=== PATIENT | male | born 1965 | race Caucasian/White ===

== ENCOUNTER → 2016-10-02 | Outpatient (CLI) | payer OTHER ==
[~2016-10-02] MED LIST: ALBUTEROL17 GM INH; AZELASTINE137 MCG/0.; CELEXA20 MG PO; CLEOCIN HCL300 M1 PO; COUMADIN5 MG; CRESTOR PO; DIOVAN80 M1 PO; FLONASE 0.05% N16 G1; HYDROCODON-ACE1 EAC5 PO; HYDROCODONE PO; HYDROXYZINE HCL10 MG PO; LOVENOX120 MG/0.8 INJ; METFORMIN PO; MONTELUKAST SOD10 MG PO; NEURONTIN600 MG PO; PERCOCET 10/3251 TAB PO; PERCOCET5/325; PREDNISONE PO; STIOLTO RESPIMAT4 GM INH; VICTOZA0.6 MG/0.1 SQ; VISTARIL PO
--- NOTE | ~2016-10-02 | CT2 ---
[facility] A Service of [facility] & [facility] RADIOLOGY TEXT RESULTS PATIENT: JOSE GAYLE JR LOCATION: [facility] : 67 UNIT #: [id number] AGE: [address]: Cole Castelan MD SEX: M ORDER DR: [id number] [place] [id number] O MR#: [id number] Acc #: [id number] NAME: JOSE GAYLE : 1965 SEX: M STUDY DATE/TIME: 10/02/2016 8:30 UNIT: SCT ROOM: STUDY DESCRIPTION: CT Abd and Pelv W Cont Attending Physician: Cole Castelan M.D. Referring Physician: Cole Castelan M.D. Ordering Physician: Cole Castelan M.D. Primary Care Physician: Selena Curry A.P.R.N. MEDICAL IMAGING REPORT This report is preliminary unless electronic signature is present. EXAM CT of the abdomen and pelvis with contrast. INDICTION Left sided abdominal pain for 3 weeks. Patient has a history of androgen excess and testicular hypofunction secondary to polycythemia. TECHNIQUE Axial CT images were obtained from dome of the diaphragm through the symphysis pubis following the administration of oral and intravenous contrast material. The CT exam was performed with one or more of the following radiation dose reduction techniques: automatic exposure control, adjustment of mA and/or kV according to patient size, and iterative reconstruction. FINDINGS Images through the lung bases demonstrate some pleural-based scarring at the right lung base. Some additional scarring is also noted at the left lung base. No suspicious pulmonary nodules or masses are seen. Stomach and proximal small bowel are within normal limits. Adrenal glands are somewhat bulky in contour but unchanged when compared to the prior exam. Patient does have hepatosplenomegaly. The liver measures up to about 16.2 cm in craniocaudal dimensions while the spleen measures up to 14.5 cm in craniocaudal dimensions. Gallbladder is surgically absent. Pancreas is mildly atrophic. There is noted some mechanical bowel obstruction. Prostate gland is mildly enlarged and does contains some dystrophic calcifications. Urinary bladder appears normal. There is no evidence of mechanical bowel obstruction. No free fluid or adenopathy is seen within the abdomen or pelvis. On prior examination this patient had a thrombus within the SMV. I [facility] A Service of [facility] RADIOLOGY TEXT RESULTS PATIENT: JOSE GAYLE JR LOCATION: [facility] : 67 UNIT #: [id number] AGE: [address]: Cole Castelan MD SEX: M ORDER DR: suspect there is some persistent chronic thrombus within it although the previously noted abnormal bowel has resolved. Splenic vein and portal vein are both patent. IMPRESSION 1. Hepatosplenomegaly. 2. Previously identified SMV thrombus is no longer as evident. Some of this may be related to timing of the contrast bolus but certainly does not appear enlarged on today's examination, and no mesenteric edema or bowel abnormality is seen on today's study. I do suspect there is probably at least some chronic thrombus with SMV. 3. Please see the body of the report for any other additional incidental findings. Dictated by... Queta Adler M.D. THIS IS AN ELECTRONICALLY VERIFIED REPORT Queta Adler M.D. at 10/02/2016 3:54 PM ROGER/chyna TD: 10/02/2016 13:44 JOB #: [id number] MEDICAL IMAGING REPORT Page 1 of 1
[2016-10-02 07:45] LABS: POC - CREATININE 1.01 mg/dL (0.64-1.27); POC - GFR >60.0 mL/min (>60)
== END | disposition home or self-care (01) ==
LOC: SCT 07:20 → CCAT 07:40 → SCT 09:20 → CCAT 09:20
PROVIDERS: Internal Medicine Hematology & Oncology
DX: D75.1 Secondary polycythemia (principal); G47.33 Obstructive sleep apnea (adult) (pediatric); E29.1 Testicular hypofunction; E26.1 Secondary hyperaldosteronism; R16.2 Hepatomegaly with splenomegaly, not elsewhere classified
CPT/HCPCS: 74177; 82565; Q9967

== ENCOUNTER → 2016-11-23 | Outpatient (CLI) | payer OTHER ==
--- NOTE | ~2016-11-23 | EKG ---
PATIENT: JOSE GAYLE UNIT #: [id number] Ventricular Rate: 83 BPM Atrial Rate: 83 BPM P-R Interval: 152 ms QRS Duration: 72 ms Q-T Interval: 344 ms QTC Calculation(Bezet): 404 ms P [place]: 72 degrees Calculated R [place]: 59 degrees Calculated T [place]: 33 degrees Diagnosis Line: Normal sinus rhythm Diagnosis Line: Nonspecific T wave abnormality Diagnosis Line: Abnormal ECG Diagnosis Line: No previous ECGs available Diagnosis Line: Confirmed by FLORENTIN CARMONA MD ([id number]) on 11/23/2016 Diagnosis Line: 6:59:39 PM INTERPRETING MD: MATHEW CASTILLO
[2016-11-23 14:18] LABS: HEMATOCRIT 50.6 % (38.0-50.0); HEMOGLOBIN 17.5 gm/dL (13.0-16.0); MEAN CELL VOLUME 85.9 FL (83-96); MEAN CORPUSCULAR HEMOGLOBIN 29.7 PG (28-34); MEAN CORPUSCULAR HGB CONC 34.5 g/dL (30-36); MEAN PLATELET VOLUME 9.3 FL (6.5-11.5); RED BLOOD COUNT 5.89 X10e (3.90-5.60); RED CELL DISTRIBUTION WIDTH 17.3 % (11.0-15.5); WHITE BLOOD COUNT 7.9 X10e3 (4.0-10.5)
[2016-11-23 14:46] LABS: ALBUMIN SERUM 4.6 g/dL (3.5-5.0); BILIRUBIN,TOTAL 0.8 mg/dL (0.2-2.0); BUN/CREATININE RATIO 13.75; CALCIUM SERUM 9.6 mg/dL (8.4-10.2); CREATININE SERUM 0.8 mg/dL (0.6-1.4); GLOM FILT RATE Estimated 104.2 mL/min (>60); POTASSIUM 4.2 mmol/L (3.5-5.1); PROTEIN TOTAL SERUM 8.4 g/dL (6.0-8.3)
== END | disposition home or self-care (01) ==
LOC: CAMB 12:49
PROVIDERS: Surgery
DX: Z01.818 Encounter for other preprocedural examination (principal)
CPT/HCPCS: 36415; 80053; 80061; 85027; 85610; 93005

== ENCOUNTER → 2016-11-23 | Outpatient (CLI) | payer OTHER ==
[2016-11-23 14:34] LABS: INR 1.7
[2016-11-23 14:45] LABS: CHOLESTEROL 170 mg/dL (0-200); HDL CHOLESTEROL 42 mg/dL (29-75); LDL CHOLESTEROL 112 mg/dL ([, -130]); LDL/HDL RATIO 3 RATIO (0-4); TRIGLYCERIDES 80 mg/dL (10-160)
== END | disposition home or self-care (01) ==
LOC: CLAB 13:50
PROVIDERS: Internal Medicine Hematology & Oncology
DX: I81 Portal vein thrombosis (principal)
CPT/HCPCS: 80061; 83036; 85610

== ENCOUNTER → 2016-11-30 | Day surgery (SDC) | payer OTHER ==
--- NOTE | ~2016-11-30 | OR ---
Unit #: [id number] #: [id number] Patient: JOSE GAYLE JR [id number] [address] [address] [id number] O MR#: [id number] NAME: JOSE GAYLE JR ROOM: Date of Procedure: 11/30/2016 Admission Date: 11/30/2016 Surgeon: Aidan Case M.D. : 1965 Attending Physician: Aidan Case M.D. Primary Care Physician: Farhad Alegre D.O. PROCEDURE OPERATIVE NOTE PREOPERATIVE DIAGNOSIS Chronically inflamed sebaceous cyst right upper back. POSTOPERATIVE DIAGNOSIS Chronically inflamed sebaceous cyst right upper back. PROCEDURE PERFORMED Excision of chronically inflamed sebaceous cyst right upper back 6 x 3 cm area with layered closure. ANESTHESIA General LMA anesthesia with 0.5% Marcaine plain local anesthesia. FINDINGS The area was excised and sent to pathology. COMPLICATIONS None apparent. CONDITION The patient tolerated the procedure well. INDICATION The patient is a 51-year-old white male who has a chronically inflamed sebaceous cyst of the right upper back. It required incision and drainage and dressing changes to heal in secondarily. It is currently without infection and quiet and he presents at this time for excision for pathologic diagnosis and treatment. DESCRIPTION OF PROCEDURE After obtaining informed consent as well as receiving preoperative antibiotics, the patient was brought to the operating room and, after adequate general LMA anesthesia was obtained, he was very carefully placed into the left lateral decubitus position with an axilla roll in place and all pressure points carefully padded and all extremities manipulated very carefully. A beanbag was used to secure the patient. His right upper back was prepped and draped in a sterile fashion. An elliptical incision was made around the area of the cyst in the previous abscess cavity. It was taken down to the skin with a knife into the subdermal tissues and subcutaneous tissues with electrocautery with good hemostasis. The wound was irrigated and hemostasis obtained with the Bovie and infiltrated with 0.5% Marcaine plain local anesthesia. The deep tissues were Unit #: [id number] #: [id number] Patient: JOSE GAYLE JR reapproximated with interrupted 3-0 Vicryl sutures. The skin was closed with interrupted 3-0 nylon vertical mattress sutures. A dry dressing was applied followed by a Tegaderm dressing. Needle counts, sponge counts, instrument counts were all correct as reported by the scrub nurse x2. The patient went from the operating room to recovery room in stable condition. Dictated by... Micah Velazquez TD: 12/01/2016 07:20 JOB #: [id number] PROCEDURE OPERATIVE NOTE Page 1 of 1 X Aidan Case MD X PROCEDURE OPERATIVE NOTE
[2016-11-30 07:25] LABS: INR 1.5; PROTHROMBIN TIME (PATIENT) 16.2 SECONDS (10.0-11.7)
== END | disposition home or self-care (01) ==
LOC: CSUR 06:23
PROVIDERS: Surgery
DX: L72.0 Epidermal cyst (principal); E11.9 Type 2 diabetes mellitus without complications; J44.9 Chronic obstructive pulmonary disease, unspecified; F17.210 Nicotine dependence, cigarettes, uncomplicated; Z88.1 Allergy status to other antibiotic agents; Z88.8 Allergy status to other drugs, medicaments and biological substances; Z79.01 Long term (current) use of anticoagulants; Z79.899 Other long term (current) drug therapy; Z90.49 Acquired absence of other specified parts of digestive tract; Z98.890 Other specified postprocedural states
CPT/HCPCS: 82947; 85610; 88304; J0690; J1885; J2250; J2270; J2405; J3010